=== PATIENT | female | born 1955 | race Caucasian/White ===

== ENCOUNTER 2021-11-19 08:28 | Emergency (ER) | payer OTHER, MEDICAID ==
[~2021-11-19] VITALS: Ht 167.6 cm; Wt 68.0 kg
[2021-11-19 08:31] VITALS: BP 132/67
== END 2021-11-19 11:08 | disposition home or self-care (01) ==
LOC: ER 08:29
DX: S30.1XXD Contusion of abdominal wall, subsequent encounter (principal); I25.10 Atherosclerotic heart disease of native coronary artery without angina pectoris; F17.200 Nicotine dependence, unspecified, uncomplicated; F15.90 Other stimulant use, unspecified, uncomplicated; Z48.02 Encounter for removal of sutures; Z98.890 Other specified postprocedural states; X58.XXXD Exposure to other specified factors, subsequent encounter
CPT/HCPCS: 99281

== ENCOUNTER 2021-12-08 14:47 | Outpatient (CLI) | payer OTHER, MEDICAID | END 2021-12-08 23:59 | disposition home or self-care (01) | LOC: RT 14:47 | DX: R94.2 Abnormal results of pulmonary function studies (principal); J18.9 Pneumonia, unspecified organism; I50.22 Chronic systolic (congestive) heart failure | CPT/HCPCS: 71046; 94060; 94760 ==